=== PATIENT | female | born 1980 | race Caucasian/White ===

== ENCOUNTER 2018-06-15 06:05 | Day surgery (SDC) | payer OTHER ==
[2018-06-14 13:38] VITALS: BMI 31.8
[2018-06-15] MEDS ORDERED: Fentanyl 100 MCG/2 ML VIAL ONE (06:46)
[2018-06-15] MEDS ORDERED: Famotidine/PF 20 mg/2ml Vial ONE (06:46)
[2018-06-15] MEDS ORDERED: Lidocaine 1% w/Epinephrine 1:200K 30 ML VIAL ONE (07:00)
[2018-06-15] MEDS ORDERED: CEFAZOLIN 2 GM/50 ML BAG ONE (07:12)
[2018-06-15] MEDS ORDERED: Propofol 500 MG/50 ML VIAL ONE (07:13)
[2018-06-15] MEDS ORDERED: Midazolam HCl 2 mg/2 ml Vial ONE (07:24)
[2018-06-15] MEDS ORDERED: Dexamethasone 20 MG/5 ML VIAL ONE (11:29)
[2018-06-15] MEDS ORDERED: PROPOFOL 200 MG/20 ML VIAL ONE (11:29)
[2018-06-15] MEDS ORDERED: Ketorolac Tromethamine 30 MG/ML VIAL ONE (11:29)
--- NOTE | 2018-06-16 14:37 | OP ---
DATE OF PROCEDURE: 06/15/2018 PREOPERATIVE DIAGNOSIS: Left carpal tunnel syndrome. POSTOPERATIVE DIAGNOSIS: Left carpal tunnel syndrome. PROCEDURE PERFORMED: Left open carpal tunnel release. ANESTHESIA: TEVA, The patient received 10 mL of 1% lidocaine with epinephrine. ESTIMATED BLOOD LOSS: 15 mL. TOURNIQUET TIME: 5 minutes at 350 mmHg. ANTIBIOTICS: Ancef. IMPLANTS: None. EXPLANTS: None. COMPLICATIONS: None. HISTORY OF PRESENT ILLNESS: Ms. Hawk is a 37-year-old female, who presented with history of bilateral carpal tunnel. She underwent a right release. She is sent back for a left release. I have discussed with the patient risks and benefits of surgery to include pain, scar, bleeding, infection, damage to vital structures, decreased range of motion and strength, continued pain despite surgical intervention, damage to vital structures, and loss of life or limb. The patient understood the risks and benefits, elected to proceed. Time-out was performed designating the patient's left upper extremity as the operative site based on site, consents, and markings. DESCRIPTION OF PROCEDURE: After time-out was planned, the patient had about 5 mL and a wrist wheel as well as in-line with the incision and tourniquet was brought up to the total of 5 minutes. I made an incision approximately at Arauz cardinal line on the radial aspect of the fourth ray down to skin. I dissected down through fat, came down to the palmar fascia. I used the hemostat to protect the neurovascular structures and dissected through the palmar fascia and then came down to the patient's palmaris brevis and transverse carpal ligament protecting the nerve and completely released it into the wrist at a finger's breadth and made sure that the transverse carpal ligament was completely released. We then washed, let the tourniquet down, controlled bleeding, closed with horizontal mattress single simple stiches of 4-0 nylon, and injected the remaining 6 mL into the hand, placed the patient in a soft tissue dressing. The patient had no problems throughout the procedure. The patient will follow up with me in about 8 to 14 days. Remove the soft tissue dressing and place a Velcro wrist splint, to be sent with adequate pain medications. Job ID: [id number] [facility]
== END 2018-06-15 09:00 | disposition home or self-care (01) ==
LOC: SDC 06:05
PROVIDERS: ATTEND Orthopaedic Surgery
PROC: 01N50ZZ Release Median Nerve, Open Approach (ICD-10-PCS; principal; 2018-06-15)
DX: G56.02 Carpal tunnel syndrome, left upper limb (principal); Z88.5 Allergy status to narcotic agent
CPT/HCPCS: 84703; 85027; J0131; J1100; J1885; J2250; J2704; J3010; S0028

== ENCOUNTER 2018-06-30 12:08 | Outpatient (CLI) | payer OTHER ==
[2018-06-30 12:30] LABS: Bilirubin Small (Negative); Blood, Urine Negative (Negative); Clarity Cloudy (Clear); Glucose, Urine (Dipstick) Negative (Negative); Leukocyte Small (Negative); Nitrite Negative (Negative); Protein, Urine (Dipstick) Negative (Neg-Trace); Specific Gravity, Urine 1.025 (1.005-1.030); Urobilinogen 0.2 mg/dL (0.2-1.0)
[2018-06-30 12:39] LABS: #Basophils 0.2 thou/uL (0.0-0.2); #Eosinphils 0.2 thou/uL (0.0-0.7); #Lymphocytes 3.3 thou/uL (1.20-3.40); #Monocytes 0.8 thou/uL (0.11-0.59); #Neutrophils 7.6 thou/uL (1.40-6.50); %Basophils 1.6 % (0.0-1.0); %Eosinophils 1.8 % (0.0-10.0); %Monocytes 6.7 % (0.0-10.0); %Neutrophils 62.9 % (42.0-75.0); Mean Corpuscular HGB CONC 32.7 g/dL (32.0-36.0); Mean Corpuscular Hemoglobin 27.1 pg (27.0-31.0); Mean Platelet Volume 8.6 fL (7.4-10.4); Platelet Count 281 thou/uL (130-400); RBC Distribution Width 14.1 % (11.5-14.5); Red Blood Cell (RBC) Count 4.42 mill/uL (4.20-5.40); White Blood Cell (WBC) Count 12.1 thou/uL (4.8-10.8)
[2018-06-30 12:48] LABS: Bacteria/HPF 3+ HPF (None Seen); Hyaline Casts/LPF NONE SEEN LPF (0-3 Hyaline); RBC/HPF 0-3 HPF (0-3)
[2018-06-30 12:49] LABS: Amphetamine Detected (NotDetected); Benzodiazepine Screen Detected (NotDetected); Methamphetamine Detected (NotDetected); Opiate Screen Detected (NotDetected); THC/Cannabinoid Screen Detected (NotDetected)
[2018-06-30 12:50] LABS: Barbiturates Screen Not Detected (NotDetected); Cocaine Metabolite Screen Not Detected (NotDetected); Medtox Control Line Valid? VALID (VALID); Methadone Not Detected (NotDetected); Oxycodone Screen Not Detected (NotDetected); Phencyclidine (PCP) Not Detected (NotDetected); Tricyclic Screen Detected (NotDetected)
[2018-06-30 12:52] LABS: ALT (SGPT) 10 U/L (8-55); AST (SGOT) 13 U/L (5-34); Albumin 4.1 g/dL (3.5-5.0); Alkaline Phosphatase 93 U/L (40-150); Anion Gap 12 mmol/L (10-20); BUN (Urea Nitrogen) 9 mg/dL (7.0-18.7); Bilirubin, Total 0.2 mg/dL (0.2-1.2); Calc. Creatinine Clearance 0 mL/min (70-130); Calcium 8.8 mg/dL (7.8-10.44); Carbon Dioxide 27 mmol/L (22-29); Cardiac Risk 3.3 (Less than 4.5); Chloride 105 mmol/L (98-107); Cholesterol 201 mg/dl (< 200 Desired); Estimated GFR-MDRD Greater than 90; Globulin 2.7 g/dL (2.4-3.5); Glucose 88 mg/dL (70-105); HDL Cholesterol 61 mg/dL (>60 Neg Risk); LDL Cholesterol, Calculated 117 mg/dL; Protein, Total 6.8 g/dL (6.0-8.3); Sodium 140 mmol/L (136-145); Triglycerides 115 mg/dL (Less than 150)
--- NOTE | 2018-06-30 12:52 | RAD ---
RIGHT ANKLE THREE VIEWS: History: Right ankle pain. FINDINGS/IMPRESSION: The ankle mortise is maintained. No fracture, dislocation, or bony destruction is seen. A plantar callum caneal spur is present. POS: NIGHAT
== END 2018-06-30 12:09 | disposition home or self-care (01) ==
LOC: SCSRAD 12:08
PROVIDERS: ATTEND Family Medicine
DX: M25.571 Pain in right ankle and joints of right foot (principal); Z51.81 Encounter for therapeutic drug level monitoring; R45.86 Emotional lability; M77.31 Calcaneal spur, right foot; Z79.01 Long term (current) use of anticoagulants
CPT/HCPCS: 36415; 80053; 80061; 80306; 81001; 84443; 85025

== ENCOUNTER 2018-07-28 07:56 | Outpatient (CLI) | payer OTHER ==
[2018-07-28 15:19] LABS: Hemoglobin 12.9 g/dL (12.0-16.0); Mean Corpuscular HGB CONC 32.9 g/dL (32.0-36.0); Mean Corpuscular Hemoglobin 28.5 pg (27.0-31.0); Mean Corpuscular Volume 86.7 fL (78.0-98.0); Mean Platelet Volume 8.4 fL (7.4-10.4); Platelet Count 297 thou/uL (130-400); RBC Distribution Width 13.1 % (11.5-14.5); Red Blood Cell (RBC) Count 4.51 mill/uL (4.20-5.40); White Blood Cell (WBC) Count 9.9 thou/uL (4.8-10.8)
[2018-07-28 15:32] LABS: BHCG - Serum Negative (NEGATIVE); Pregs Control Background? CLEAR/WHITE (CLR/WHITE); Pregs Control Bar Appear? YES (CONTROL BAR)
== END 2018-07-28 07:57 | disposition home or self-care (01) ==
LOC: LABBT 07:56
PROVIDERS: ATTEND Student in an Organized Health Care Education/Training Program
DX: Z01.812 Encounter for preprocedural laboratory examination (principal); N92.0 Excessive and frequent menstruation with regular cycle; R10.2 Pelvic and perineal pain
CPT/HCPCS: 84703; 85027; 86850; 86900; 86901

== ENCOUNTER 2018-07-28 16:00 | Inpatient (IN) | payer OTHER ==
[2018-07-28 14:45] VITALS: BMI 30.9
[2018-07-31] MEDS ORDERED: Famotidine/PF 20 mg/2ml Vial ONE (08:53)
[2018-07-31] MEDS ORDERED: CEFAZOLIN 2 GM/50 ML BAG ONE (08:53)
[2018-07-31] MEDS ORDERED: Gabapentin 300 MG CAP ONE (08:53)
[2018-07-31] MEDS ORDERED: CeleCOXIB 100 MG CAP ONE ×3 (08:53→09:01)
[2018-07-31] MEDS ORDERED: Midazolam HCl 2 mg/2 ml Vial ONE (09:27)
[2018-07-31] MEDS ORDERED: Fentanyl 250 MCG/5 ML VIAL ONE (12:59)
[2018-07-31] MEDS ORDERED: Bupivacaine HCl 0.5%/Epinephrine 1:200,000/PF 30 ml Vial ONE (12:59)
[2018-07-31] MEDS ORDERED: diphenhydrAMINE 25 MG CAP PO PRN (13:54)
[2018-07-31] MEDS ORDERED: Ondansetron PF 4 MG/2 ML Vial IVP PRN (13:54)
[2018-07-31] MEDS ORDERED: Acetaminophen 325 MG TAB PO PRN (13:54)
[2018-07-31] MEDS ORDERED: Bisacodyl 10 MG SUPP PR PRN (13:54)
[2018-07-31] MEDS ORDERED: Zolpidem Tartrate 5 MG TAB PO PRN (13:54)
[2018-07-31] MEDS ORDERED: Promethazine HCl 25 MG/ML VIAL IM PRN ×2 (13:54→15:44)
[2018-07-31] MEDS ORDERED: Fentanyl 100 MCG/2 ML VIAL SLOW IVP PRN (13:54)
[2018-07-31] MEDS ORDERED: HYDROcodone/Acetaminophen 5/325 mg Tablet PO PRN ×2 (13:54)
[2018-07-31] MEDS ORDERED: Promethazine HCl 25 MG/ML VIAL SLOW IVP PRN (15:44)
[2018-07-31] MEDS ORDERED: Meperidine HCl/PF 25 MG/ML VIAL SLOW IVP PRN (15:44)
[2018-07-31] MEDS ORDERED: HYDROmorphone 2 MG/ML VIAL SLOW IVP PRN (15:44)
[2018-07-31] MEDS ORDERED: Ondansetron HCl/PF 4 MG/2 ML Vial IVP PRN (15:44)
[2018-07-31] MEDS ORDERED: Ketorolac Tromethamine 30 MG/ML VIAL IVP PRN (15:44)
[2018-07-31] MEDS ORDERED: Fentanyl 100 MCG/2 ML VIAL ONE (15:55)
[2018-07-31] MEDS ORDERED: Dexamethasone 20 MG/5 ML VIAL ONE ×2 (16:14)
[2018-07-31] MEDS ORDERED: ePHEDrine/0.9% NaCl/PF SYRINGE 50 mg/10 ml ONE (16:14)
[2018-07-31] MEDS ORDERED: PHENYLEPHRINE-NS 100 MCG/ML 10 ML SYRINGE ONE (16:14)
[2018-07-31] MEDS ORDERED: diphenhydrAMINE 50 MG/ML VIAL ONE (16:14)
[2018-07-31] MEDS ORDERED: Lidocaine 1% PF 5 ML VIAL ONE (16:14)
[2018-07-31] MEDS ORDERED: Rocuronium Bromide 10 MG/ML (10ML VIAL) ONE (16:14)
[2018-07-31] MEDS ORDERED: Metoclopramide HCl 10 MG/2 ML VIAL ONE (16:14)
[2018-07-31] MEDS ORDERED: Glycopyrrolate 0.2 MG/ML 5 ML SYRINGE ONE (16:14)
[2018-07-31] MEDS ORDERED: Ondansetron PF 4 MG/2 ML Vial ONE (16:14)
[2018-07-31] MEDS ORDERED: PROPOFOL 200 MG/20 ML VIAL ONE (16:14)
[2018-07-31] MEDS: Ketorolac Tromethamine 30 MG/ML VIAL IVP SCH ×2 (17:50→23:54)
[2018-07-31] MEDS: Lactated Ringer's 1,000 ML IV SCH (18:25)
[2018-07-31] MEDS: Simethicone Chewable 80 MG TAB PO PRN (18:27)
[2018-08-01 06:05] LABS: Mean Corpuscular HGB CONC 32.9 g/dL (32.0-36.0); Mean Corpuscular Volume 85.1 fL (78.0-98.0); Mean Platelet Volume 8.6 fL (7.4-10.4); Platelet Count 285 thou/uL (130-400); RBC Distribution Width 13.1 % (11.5-14.5); Red Blood Cell (RBC) Count 4.29 mill/uL (4.20-5.40); White Blood Cell (WBC) Count 15.4 thou/uL (4.8-10.8)
[2018-08-01] MEDS: Lactated Ringer's 1,000 ML IV SCH (06:39)
[2018-08-01] MEDS: Ketorolac Tromethamine 30 MG/ML VIAL IVP SCH (06:40)
[2018-08-01] MEDS: Simethicone Chewable 80 MG TAB PO PRN (07:55)
--- NOTE | 2018-08-01 07:59 | PDOC.EVN ---
Event Note - Event Note Event Note: S: No complaints, pain controlled, voiding, elsa po, +flatus. O: VSSAF NAD RRR CTAB S/appttp/ND/BS pos, inc c/d/i no e/c/c/ Hgb 12.0 A: POD 1 s/p RATLH Bilat salpingectomy for menorrhagia dysmenorrhea endometriosis VSSAF Doing well met all milestones pain controlled on norco, start sched motrin Stool softners on DC Resume home meds, DC all home narcotics Final path pending. DC home FU 2 wks
[2018-08-01] MEDS ORDERED: Ibuprofen 800 MG TAB PO SCH (08:00)
[2018-08-01] MEDS ORDERED: Lithium Carbonate 150 MG CAP PO SCH (08:00)
[2018-08-01 08:16] VITALS: BP 131/67; TEMP 98
[2018-08-01] MEDS ORDERED: Gabapentin 300 MG CAP PO SCH (09:00)
--- NOTE | 2018-08-02 19:14 | OP ---
DATE OF PROCEDURE: 07/31/2018 PREOPERATIVE DIAGNOSES: 1. Menorrhagia. 2. Dysmenorrhea. POSTOPERATIVE DIAGNOSES: 1. Menorrhagia. 2. Dysmenorrhea. 3. Endometriosis. PROCEDURES PERFORMED: Robotic-assisted total laparoscopic hysterectomy and bilateral salpingectomy. ANESTHESIA: General endotracheal. ASSISTANTS: Wendi Cottrell MD and Shakila Luz PA-C. PATHOLOGY: Uterus, cervix, and bilateral fallopian tubes. ESTIMATED BLOOD LOSS: 25 mL. IVF: 1500 mL of crystalloid. URINE OUTPUT: 300 mL of clear urine. COMPLICATIONS: None. DRAINS: Ayers catheter. FINDINGS: On exam under anesthesia, a 10-week size mobile anteverted slightly enlarged globular uterus that sounded to 9 cm on exam. The cervix was normal appearing as were the bilateral fallopian tubes and ovaries. There were approximately four small pale endometriotic implants in the posterior cul-de-sac and uterosacral ligaments that were either included in the specimen, not fulgurated. There was excellent hemostasis noted at the conclusion of the procedure and the uterus was noted lateral to the vaginal cuff edges and to be peristalsing during the case. DESCRIPTION OF PROCEDURE: The patient was taken to the operating room where general anesthesia was obtained without difficulty. The patient was prepped and draped in a sterile fashion in dorsal lithotomy position. A Ayers catheter was placed in the bladder. A speculum was placed in the vagina. The anterior lip of the cervix was grasped with single-tooth tenaculum. The uterus was then sounded to 9 cm. It was progressively dilated with Anton dilators. The 8 cm MELLISA tip and 4 cm MELLISA colpotomizer ring assembled to the manipulator and the tip was inserted to the uterine fundus and balloon inflated. Tenaculum and speculum were removed out of the vagina. The colpotomizer ring was advanced, fit snugly around the cervix and the vaginal occluder balloon was inflated. Johnny was placed in low lithotomy and attention was turned to the abdomen. A 0.5% Marcaine with epinephrine was infiltrated into the umbilicus and an 8 mm skin incision was made. The Veress needle was passed into the abdomen, noting an opening pressure of 3 mmHg, pneumoperitoneum was obtained without difficulty. The Veress needle was removed and the 8 mm robotic camera trocar was advanced into the abdomen and confirmed placement with 8 mm 0-degree robotic scope. Steep Trendelenburg was obtained. Right and left lower quadrant 8 mm robotic trocars were placed under direct visualization after infiltrating with anesthetic. A right upper quadrant 11 mm port was placed under direct visualization after infiltrating with anesthetic also. The robot was then docked. The right robotic arm contained monopolar scissors, the left robotic arm contained a Fenestrated bipolar. The surgeon consulted to control. The right fallopian tube was elevated. The mesosalpinx was cauterized with Fenestrated and transected with scissors and there was just a fallopian tube segment left as the patient had prior tubal ligation. The fallopian tube segment was then removed out of the abdomen after complete transection. The uteroovarian was identified and cauterized with Fenestrated x2 and transected with scissors on cautery in the middle. This was taken down to the mid portion of the round ligament that was cauterized with Fenestrated and transected with scissors. The posterior leaf of the broad ligament was then taken down, undermining with Fenestrated and dissecting the retroperitoneum off the peritoneum and this was taken down to the level of the uterosacral. The ureter was then noted and the retroperitoneum running laterally on the right side. The anterior leaf of the broad ligament was also taken down with the scissors and the retroperitoneal fibers were dissected off this, pushing and spreading with Fenestrated. This allowed to skeletonize the uterine vessels adequately. Additional skeletonization was performed and the uterine vessels were easily visible and they were then clamped with Fenestrated and cauterized x1. The bladder flap was then further developed with incising on the vesicouterine peritoneum and bluntly dissecting down the adventitia below the level of the colpotomizer ring. Attention was turned to the left side, where the left fallopian tube was grasped and elevated. The mesosalpinx was cauterized with Fenestrated and transected with scissors. This fallopian tube segment was then removed out of the abdomen. The uteroovarian was cauterized x2 with Fenestrated and transected in the middle with scissors and taken down to the mid portion of the round ligament that was cauterized in the mid portion and transected completely with scissors. The posterior leaf similar to the contralateral side was then dropped down to the level of the uterosacral and ureter was identified at that time. The retroperitoneum was further dissected laterally to allow the ureter to fall even further away from the uterine cuff and vaginal cuff. The anterior leaf of the broad ligament was incised down to level of the bladder flap and the retroperitoneum was dissected off the uterine vessels at that time adequately. The bladder flap was further developed by scoring on the pubocervical fascia and dissecting down even further distal past the colpotomizer ring with hemostasis achieved at bladder pillars with monopolar scissors. The vessels on the left side were then clamped and cauterized and these were then transected after cautery was performed above the level of the transection to serve as a back clamp. Colpotomy was then performed on that left lateral side and carried around anteriorly without difficulty and hemostasis was achieved in the branch of the uterine artery just anteriorly to the left uterine pedicle with Fenestrated. No excessive bleeding was present. The right uterine pedicle was again clamped and cauterized in multiple times adequately and transected and then the colpotomy was carried around the right lateral apex and posteriorly as well and no brisk bleeding was present and the uterus was then removed into the vagina. Irrigation was performed of the vaginal cuff and hemostasis was achieved. The vaginal cuff was fenestrated. The scissors were traded off with the needle operator and truck driver and 2-0 STRATAFIX barbed suture was used to close the vaginal cuff in the running fashion and showing incorporation of the pubocervical fascia, vaginal mucosa in each bite, and posterior peritoneum, and the suture was then run back for several sutures and to ensure excellent closure. The needle was then cut and removed out of the abdomen. The irrigation was again performed of the pelvis. The pressure was suctioned down and low pressure check was performed with hemostasis noted to be excellent. Several small endometriotic implants noted in the posterior cul-de-sac were then cauterized with Fenestrated. These were not near any significant structures. All instruments were then removed out of the abdomen. The robot was then docked. The pneumoperitoneum was released. The skin was closed of all incisions with 4-0 Monocryl in subcuticular fashion and Dermabond was applied. The uterus was removed out of the vagina and the cuff was checked and noted to be hemostatic with excellent closure. All instruments were removed out of the vagina. The patient tolerated the procedure well. Sponge and needle counts were correct x2. The patient was sent to recovery room in stable condition. The patient received Ancef 2 g prior to the procedure. Job ID: [id number]
== END 2018-08-01 09:55 | disposition home or self-care (01) | DRG 743 ==
LOC: SURG A 07-31 08:07 → EDSTATUS 07-31 16:00 → 3SE 07-31 17:40
PROVIDERS: ADMIT Student in an Organized Health Care Education/Training Program; ATTEND Student in an Organized Health Care Education/Training Program
PROC: 0UT9FZZ Resection of Uterus, Via Natural or Artificial Opening With Percutaneous Endoscopic Assistance (ICD-10-PCS; principal; 2018-07-31)
PROC: 0UTC4ZZ Resection of Cervix, Percutaneous Endoscopic Approach (ICD-10-PCS; 2018-07-31)
PROC: 0UT74ZZ Resection of Bilateral Fallopian Tubes, Percutaneous Endoscopic Approach (ICD-10-PCS; 2018-07-31)
PROC: 8E0W4CZ Robotic Assisted Procedure of Trunk Region, Percutaneous Endoscopic Approach (ICD-10-PCS; 2018-07-31)
DX: N92.0 Excessive and frequent menstruation with regular cycle (principal); N94.6 Dysmenorrhea, unspecified; N80.9 Endometriosis, unspecified
CPT/HCPCS: 36415; 85027; 88307; J0131; J0670; J1100; J1200; J1885; J2001; J2250; J2405; J2704; J2765; J3010; S0028

== ENCOUNTER 2018-09-22 10:44 | Emergency (ER) | payer OTHER ==
[2018-09-22 11:53] LABS: Hemoglobin 13.6 g/dL (12.0-16.0); Mean Corpuscular HGB CONC 32.1 g/dL (32.0-36.0); Mean Corpuscular Hemoglobin 28.2 pg (27.0-31.0); Mean Corpuscular Volume 87.9 fL (78.0-98.0); Mean Platelet Volume 9.5 fL (7.4-10.4); Platelet Count 234 thou/uL (130-400); RBC Distribution Width 13.8 % (11.5-14.5); Red Blood Cell (RBC) Count 4.81 mill/uL (4.20-5.40); White Blood Cell (WBC) Count 7.3 thou/uL (4.8-10.8)
[2018-09-22 11:57] LABS: ALT (SGPT) 13 U/L (8-55); AST (SGOT) 15 U/L (5-34); Albumin 4.3 g/dL (3.5-5.0); Alkaline Phosphatase 108 U/L (40-150); Anion Gap 15 mmol/L (10-20); BUN (Urea Nitrogen) 6 mg/dL (7.0-18.7); Bilirubin, Total 0.2 mg/dL (0.2-1.2); Calc. Creatinine Clearance 0 mL/min (70-130); Calcium 9.6 mg/dL (7.8-10.44); Carbon Dioxide 28 mmol/L (22-29); Chloride 102 mmol/L (98-107); Estimated GFR-MDRD 78; Globulin 2.7 g/dL (2.4-3.5); Glucose 105 mg/dL (70-105); Potassium 3.6 mmol/L (3.5-5.1); Sodium 141 mmol/L (136-145)
[2018-09-22 11:58] LABS: Band 4 % (5-11); Lymphocytes 16 % (21-51); MDiff Complete? YES; Monocytes 14 % (0-10); Neutrophil 64 % (42-75); Reactive Lymphocytes 2 % (0-10)
--- NOTE | 2018-09-22 12:09 | RAD ---
CHEST 1 VIEW: Date: 09/22/18 Time: 1125 hours HISTORY: Cough, chest pain, and fever. FINDINGS: The heart size is normal. The lungs are well expanded without focal areas of consolidation, pneumotho races, or pleural effusions. IMPRESSION: No radiographic evidence of acute cardiopulmonary process. POS: OFF
== END 2018-09-22 14:05 | disposition home or self-care (01) ==
LOC: ERS 10:44
DX: J20.9 Acute bronchitis, unspecified (principal); F31.9 Bipolar disorder, unspecified; F17.210 Nicotine dependence, cigarettes, uncomplicated
CPT/HCPCS: 36415; 71045; 80053; 85025; 93005